=== PATIENT | female | born 1945 | race Caucasian/White ===

== ENCOUNTER 2025-01-30 12:14 | Inpatient (IN) | payer OTHER ==
[~2025-01-30] VITALS: Ht 157.5 cm; Wt 36.7 kg
[2025-01-30 12:54] LABS: PLATELET COUNT (AUTO) 213 K/uL (150-450); RED BLOOD CELL COUNT(AUTO) 2.56 MIL/uL (4.0-5.2); RED CELL DISTRIBUTION WIDTH 22.9 % (11.5-15.0); WHITE BLOOD COUNT (AUTO) 3.5 K/uL (4.3-11.0)
[2025-01-30 13:01] LABS: CALCIUM, SERUM 9.5 mg/dL (8.5-10.1); CREATININE 0.7 mg/dL (0.6-1.3); SODIUM SERUM 136 mmol/L (136-145); UREA NITROGEN, BLOOD 16 mg/dL (7-18)
[2025-01-30 13:14] LABS: ALCOHOL, BLOOD < 3 mg/dL (0-10); ASPARTATE AMINOTRANSFERASE 13 U/L (15-37); TOTAL PROTEIN, SERUM 6.3 g/dL (6.4-8.2)
[2025-01-30] MEDS ORDERED: OLANZAPINE 5 MG TABLET ONE (13:40)
[2025-01-30] MEDS: OLANZAPINE ZYDIS 5 MG TAB.RAPDIS PO ONE (13:45)
[2025-01-30] MEDS ORDERED: ACETAMINOPHEN ES 500 MG TABLET ONE (16:21)
[2025-01-30] MEDS: ACETAMINOPHEN ES 500 MG TABLET PO ONE (16:28)
[2025-01-30 17:35] LABS: APPEARANCE,URINE CLEAR (CLEAR); BLOOD, URINE Negative Ery/uL (NEGATIVE); LEUKOCYTE ESTERASE ,URINE Negative (NEGATIVE); NITRITE, URINE NEGATIVE (NEGATIVE); UGLUCOSE Negative (NEGATIVE)
[2025-01-30 17:43] LABS: AMPHETAMINE, URINE NEGATIVE (NEGATIVE); BARBITURATE, URINE NEGATIVE (NEGATIVE); BENZODIAZEPINE, URINE POSITIVE (NEGATIVE); CANNABINOID, URINE NEGATIVE (NEGATIVE); COCCAINE, URINE NEGATIVE (NEGATIVE); OPIATE, URINE POSITIVE (NEGATIVE)
[2025-01-30] MEDS ORDERED: ONDANSETRON HCL/PF 4 MG/2 ML VIAL IVP PRN (22:30)
[2025-01-30] MEDS ORDERED: MAG HYDROX/AL HYDROX/SIMETH 30 ML UDC PO PRN (22:30)
[2025-01-30] MEDS ORDERED: MAGNESIUM HYDROXIDE 30 ML UDC PO PRN (22:30)
[2025-01-30] MEDS: IV NS 0.9% 1,000 ML IV PRN (23:42)
[2025-01-30] MEDS: ENOXAPARIN SODIUM 40 MG/0.4 ML DISP.SYRIN SQ SCH (23:42)
[2025-01-30] MEDS: ACETAMINOPHEN 325 MG TABLET PO PRN (23:55)
[2025-01-31 00:30] VITALS: BP 113/58; TEMP 98.6; O2SAT 94
[2025-01-31 04:00] VITALS: BP 130/79; O2SAT 100
[2025-01-31] MEDS: PANTOPRAZOLE 40 MG TABLET.DR PO SCH (07:30)
[2025-01-31 07:44] LABS: PLATELET COUNT (AUTO) 191 K/uL (150-450); RED BLOOD CELL COUNT(AUTO) 2.41 MIL/uL (4.0-5.2); RED CELL DISTRIBUTION WIDTH 23.7 % (11.5-15.0); WHITE BLOOD COUNT (AUTO) 2.1 K/uL (4.3-11.0)
[2025-01-31] MEDS ORDERED: ZINC50TA65 PO (08:22)
[2025-01-31] MEDS ORDERED: SERT50TA12 PO (08:22)
[2025-01-31] MEDS ORDERED: CLON0.5T4 PO (08:22)
[2025-01-31] MEDS ORDERED: ASPI-1420 PO (08:22)
[2025-01-31] MEDS ORDERED: NALO4SPR NS (08:22)
[2025-01-31] MEDS ORDERED: HYDR-4076 PO (08:22)
[2025-01-31] MEDS ORDERED: APIX2.5T PO (08:22)
[2025-01-31] MEDS ORDERED: CHOL100043 PO (08:22)
[2025-01-31] MEDS ORDERED: MAGN400O6 PO (08:22)
[2025-01-31] MEDS ORDERED: BISA10SU11 RC (08:22)
[2025-01-31] MEDS ORDERED: CYCL5TAB PO (08:22)
[2025-01-31] MEDS ORDERED: ATOR40TA PO (08:22)
[2025-01-31] MEDS ORDERED: ACET-73 PO (08:22)
[2025-01-31] MEDS ORDERED: DOCU100C36 PO (08:22)
[2025-01-31] MEDS ORDERED: AZEL137S7 BNOSTRILS (08:22)
[2025-01-31] MEDS ORDERED: METO25TA4 PO (08:22)
[2025-01-31] MEDS ORDERED: OXYC5TAB3 PO (08:22)
[2025-01-31] MEDS ORDERED: ALBU6.7H9 IH (08:22)
[2025-01-31] MEDS ORDERED: ONDA-97 PO (08:22)
[2025-01-31] MEDS ORDERED: SENN-261 PO (08:22)
[2025-01-31] MEDS ORDERED: ACET325T53 PO (08:22)
[2025-01-31] MEDS ORDERED: TRIA80CR12 TP (08:22)
[2025-01-31] MEDS ORDERED: CRAN300T PO (08:22)
[2025-01-31] MEDS ORDERED: IPRA42SP BNOSTRILS (08:22)
[2025-01-31] MEDS ORDERED: HYDR-500 PO (08:22)
[2025-01-31] MEDS ORDERED: ALBU2.5V38 IH (08:22)
[2025-01-31] MEDS ORDERED: FAMO20TA8 PO (08:22)
[2025-01-31] MEDS ORDERED: ZINC220C6 PO (08:23)
[2025-01-31 08:33] LABS: SERUM AMMONIA 24.0 umol/L (11-32)
[2025-01-31 08:34] LABS: ASPARTATE AMINOTRANSFERASE 16.0 U/L (15-37); CALCIUM, SERUM 9.1 mg/dL (8.5-10.1); CREATININE 0.6 mg/dL (0.6-1.3); PHOSPHORUS 4.0 mg/dL (2.5-4.9); SODIUM SERUM 142.0 mmol/L (136-145); TOTAL PROTEIN, SERUM 5.9 g/dL (6.4-8.2); UREA NITROGEN, BLOOD 14.0 mg/dL (7-18)
[2025-01-31] MEDS: PANTOPRAZOLE 40 MG VIAL IV SCH (08:45)
[2025-01-31] MEDS: ASPIRIN EC 81 MG TABLET.DR PO SCH (08:59)
[2025-01-31] MEDS: METOPROLOL SUCCINATE 25 MG TAB.SR.24H PO SCH (09:00)
[2025-01-31] MEDS: APIXABAN 2.5 MG TABLET PO SCH (09:00)
[2025-01-31] MEDS: TRIAMCINOLONE ACETONIDE 0.1% CR 15 GM TUBE TP SCH (09:59)
[2025-01-31 12:00] VITALS: BP 109/51; TEMP 97.7; O2SAT 100
[2025-01-31 16:46] VITALS: BP 77/44; TEMP 97; O2SAT 100
[2025-01-31] MEDS: IV NS 0.9% 1,000 ML IV ONE (16:52)
[2025-01-31] MEDS: BACITRACIN ZINC OINT (15 GM) 15 GM TUBE TP SCH (17:00)
[2025-01-31 17:40] VITALS: BP 100/45; O2SAT 94
[2025-01-31 20:00] VITALS: BP 99/45; TEMP 97.9; O2SAT 97
[2025-01-31] MEDS: AMITRIPTYLINE HCL 25 MG TABLET PO SCH (21:45)
[2025-01-31] MEDS: ATORVASTATIN 40 MG TABLET PO SCH (21:45)
[2025-01-31] MEDS: SERTRALINE HCL 50 MG TABLET PO SCH (21:46)
[2025-02-01] VITALS (10 sets, daily range): BP systolic 98–162; BP diastolic 40–59; TEMP 97–98.2; O2SAT 96–98
[2025-02-01 10:55] LABS: PLATELET COUNT (AUTO) 170 K/uL (150-450); RED BLOOD CELL COUNT(AUTO) 2.56 MIL/uL (4.0-5.2); RED CELL DISTRIBUTION WIDTH 20.1 % (11.5-15.0); WHITE BLOOD COUNT (AUTO) 4.1 K/uL (4.3-11.0)
[2025-02-01 12:00] LABS: RHEUMATOID FACTOR SCREEN NEGATIVE (NEGATIVE)
[2025-02-01 12:01] LABS: IRON, SERUM 154.0 ug/dl (50-175)
[2025-02-01 12:04] LABS: CALCIUM, SERUM 8.3 mg/dL (8.5-10.1); CREATININE 0.5 mg/dL (0.6-1.3); PHOSPHORUS 3.2 mg/dL (2.5-4.9); SODIUM SERUM 143.0 mmol/L (136-145); UREA NITROGEN, BLOOD 10.0 mg/dL (7-18)
[2025-02-01] MEDS: OLANZAPINE 10 MG VIAL IM PRN (12:30)
[2025-02-01] MEDS: hydrALAZINE HCL IV 20 MG VIAL IV PRN (17:27)
[2025-02-01 19:50] LABS: HIV-1/2 ANTIBODY NON REACTIVE (NONREACTIVE)
[2025-02-01] MEDS: Magnesium 1GM/D5W 100ML PREMIX 100 ML IV SCH (20:26)
[2025-02-02] VITALS (12 sets, daily range): BP systolic 122–160; BP diastolic 43–74; TEMP 97.7–98.7; O2SAT 95–98
[2025-02-02 04:07] LABS: HBSAG SCREEN Negative (Negative); HEPATITIS A AB, IgM Negative (Negative); HEPATITIS B CORE AB, IgM Negative (Negative)
[2025-02-02 12:07] LABS: CARCINOEMBRYONIC ANTIGEN (CEA) < 0.6 ng/mL (0.0-4.7); FOLIC ACID 5.1 ng/mL (>3.0); IMMUNOGLOBULIN A, SERUM 99 mg/dL (64-422); IMMUNOGLOBULIN M, SERUM 63 mg/dL (26-217)
[2025-02-02] MEDS ORDERED: GADOTERATE MEGLUMINE 5 MMOL/10 ML VIAL IV ONE (14:55)
[2025-02-02] MEDS: ENSURE ENLIVE CHOC 237 ML CAN PO SCH (15:18)
[2025-02-02] MEDS ORDERED: LORAZEPAM 4 MG/ML VIAL IM ONE (18:00)
[2025-02-02] MEDS: LORAZEPAM INJ 2 MG/ML VIAL IM ONE (18:19)
[2025-02-03] VITALS (7 sets, daily range): BP systolic 137–170; BP diastolic 63–72; TEMP 97.5–98.6; O2SAT 97
[2025-02-03 03:07] LABS: HEPATITIS B CORE AB, TOTAL Negative (Negative); HEPATITIS B SURFACE AB (QUAL) Non Reactive (.)
[2025-02-03 06:53] LABS: INR 1.02 (0.91-1.10)
[2025-02-03 06:55] LABS: PLATELET COUNT (AUTO) 180 K/uL (150-450); RED BLOOD CELL COUNT(AUTO) 3.05 MIL/uL (4.0-5.2); RED CELL DISTRIBUTION WIDTH 17.9 % (11.5-15.0); WHITE BLOOD COUNT (AUTO) 6.3 K/uL (4.3-11.0)
[2025-02-03 07:07] LABS: FREE KAPPA LT CHAINS SERUM 15.3 mg/L (3.3-19.4); FREE LAMBDA LT CHAIN SERUM 15.6 mg/L (5.7-26.3); KAPPA/LAMBDA RATIO SERUM 0.98 (0.26-1.65)
[2025-02-03 07:32] LABS: IRON, SERUM 17 ug/dl (50-175)
[2025-02-03] MEDS: CYANOCOBALAMIN 500 MCG TABLET PO SCH (08:18)
[2025-02-03 09:31] LABS: CALCIUM, SERUM 8.6 mg/dL (8.5-10.1); CREATININE 0.5 mg/dL (0.6-1.3); UREA NITROGEN, BLOOD 9.0 mg/dL (7-18)
[2025-02-03 09:35] LABS: SODIUM SERUM 144.0 mmol/L (136-145)
[2025-02-03] MEDS: POTASSIUM CL. PREMIX PERIPHER. 50 ML IV SCH (10:10)
[2025-02-03 12:07] LABS: *ANA ANTI-CENTROMERE B AB <0.2 AI (0.0-0.9); *ANA ANTI-DNA(DS) AB, QN <1 IU/mL (0-9); *ANA ANTI-JO-1 <0.2 AI (0.0-0.9); *ANA ANTICHROMATIN ANTIBODY <0.2 AI (0.0-0.9); *ANA RNP ANTIBODIES <0.2 AI (0.0-0.9); *ANA SJOGREN'S ANTI-SS-A <0.2 AI (0.0-0.9); *ANA SJOGREN'S ANTI-SS-B <0.2 AI (0.0-0.9); *ANAANTI-SCLERODERMA-70 AB <0.2 AI (0.0-0.9); *ANASMITH AB <0.2 AI (0.0-0.9)
[2025-02-04] VITALS: BP 150/68; TEMP 98.1; O2SAT 97
[2025-02-04 03:54] LABS: CALCIUM, SERUM 8.4 mg/dL (8.5-10.1); CREATININE 0.4 mg/dL (0.6-1.3); SODIUM SERUM 143.0 mmol/L (136-145); UREA NITROGEN, BLOOD 10.0 mg/dL (7-18)
[2025-02-04 04:00] VITALS: BP 158/71; TEMP 98; O2SAT 97
[2025-02-04 08:00] VITALS: BP 148/71; TEMP 98.2; O2SAT 97
[2025-02-04 12:00] VITALS: BP 150/90; TEMP 98.2; O2SAT 98
[2025-02-04] MEDS: LORAZEPAM INJ 2 MG/ML VIAL IM PRN (12:28)
[2025-02-04] MEDS: HALOPERIDOL LACTATE INJ 5 MG/ML VIAL IM ONE (12:35)
[2025-02-04] MEDS ORDERED: POTASSIUM CHLORIDE 10 MEQ/50 ML PREMIXED IVPB FOR PERIPHERAL LINE IV ONE ×2 (13:00)
[2025-02-04] MEDS ORDERED: POTASSIUM CHLORIDE 20 MEQ TAB.PRT.SR PO SCH (13:00)
[2025-02-04] MEDS: POTASSIUM CL. PREMIX PERIPHER. 50 ML IV SCH (13:17)
[2025-02-04 16:00] VITALS: BP 138/89; TEMP 98.3; O2SAT 98
[2025-02-04 20:00] VITALS: BP 186/88; TEMP 97.6; O2SAT 97
[2025-02-04] MEDS: QUETIAPINE FUMARATE 25 MG TABLET PO SCH (21:13)
[2025-02-05] VITALS: BP 167/67; TEMP 98; O2SAT 96
[2025-02-05 04:00] VITALS: BP 139/67; TEMP 97.6; O2SAT 97
[2025-02-05 07:05] LABS: PLATELET COUNT (AUTO) 170 K/uL (150-450); RED BLOOD CELL COUNT(AUTO) 2.95 MIL/uL (4.0-5.2); RED CELL DISTRIBUTION WIDTH 18.7 % (11.5-15.0); WHITE BLOOD COUNT (AUTO) 4.2 K/uL (4.3-11.0)
[2025-02-05 08:00] VITALS: BP_SYST 155; BP_SYST 165; BP_DIAS 65; BP_DIAS 68; TEMP 98; O2SAT 97
[2025-02-05 08:12] LABS: CALCIUM, SERUM 9.1 mg/dL (8.5-10.1); CREATININE 0.5 mg/dL (0.6-1.3); SODIUM SERUM 143.0 mmol/L (136-145); UREA NITROGEN, BLOOD 10.0 mg/dL (7-18)
[2025-02-05 09:15] VITALS: BP 144/55
[2025-02-05] MEDS: PANTOPRAZOLE 40 MG TABLET.DR PO SCH (09:19)
[2025-02-05 09:30] VITALS: BP 165/68
[2025-02-05] MEDS ORDERED: Quetiapine Fumarate PO (10:31)
[2025-02-05] MEDS ORDERED: AMIT25TA9 PO (10:31)
[2025-02-05] MEDS ORDERED: PANT40TA49 PO (10:31)
[2025-02-05 12:00] VITALS: BP 124/58; TEMP 98; O2SAT 95
[2025-02-06 14:07] LABS: *SPE A/G RATIO 1.7 (0.7-1.7); *SPE ALBUMIN 2.9 g/dL (2.9-4.4); *SPE ALPHA-1-GLOBULIN 0.2 g/dL (0.0-0.4); *SPE ALPHA-2-GLOBULIN 0.4 g/dL (0.4-1.0); *SPE BETA GLOBULIN 0.6 g/dL (0.7-1.3); *SPE GLOBULIN, TOTAL 1.7 g/dL (2.2-3.9); *SPE M-SPIKE Not Observed g/dL (Not Observed); *SPE PROTEIN TOTAL 4.6 g/dL (6.0-8.5); *SPEGAMMA GLOBULIN 0.5 g/dL (0.4-1.8)
== END 2025-02-05 14:10 | DRG 811 ==
LOC: ER 12:23 → MEDSG1 22:23 → TELE1 01-31 18:02
PROVIDERS: ADMIT Nurse Practitioner Family; ATTEND Internal Medicine
PROC: 30233N1 Transfusion of Nonautologous Red Blood Cells into Peripheral Vein, Percutaneous Approach (ICD-10-PCS; principal; 2025-02-01)
PROC: 0DB68ZX Excision of Stomach, Via Natural or Artificial Opening Endoscopic, Diagnostic (ICD-10-PCS; 2025-02-03)
DX: D64.9 Anemia, unspecified (principal); G93.41 Metabolic encephalopathy; F03.92 Unspecified dementia, unspecified severity, with psychotic disturbance; F03.911 Unspecified dementia, unspecified severity, with agitation; Z68.1 Body mass index [BMI] 19.9 or less, adult; C78.02 Secondary malignant neoplasm of left lung; F29 Unspecified psychosis not due to a substance or known physiological condition; D61.818 Other pancytopenia; E66.9 Obesity, unspecified; E78.5 Hyperlipidemia, unspecified; F32.9 Major depressive disorder, single episode, unspecified; F41.1 Generalized anxiety disorder; I10 Essential (primary) hypertension; I25.10 Atherosclerotic heart disease of native coronary artery without angina pectoris; J45.909 Unspecified asthma, uncomplicated; K29.70 Gastritis, unspecified, without bleeding; I48.91 Unspecified atrial fibrillation; Z79.82 Long term (current) use of aspirin; Z85.07 Personal history of malignant neoplasm of pancreas; Z85.038 Personal history of other malignant neoplasm of large intestine; Z89.611 Acquired absence of right leg above knee; R73.9 Hyperglycemia, unspecified; E80.6 Other disorders of bilirubin metabolism; G54.7 Phantom limb syndrome without pain; L89.156 Pressure-induced deep tissue damage of sacral region; S50.312A Abrasion of left elbow, initial encounter; X58.XXXA Exposure to other specified factors, initial encounter; Y93.9 Activity, unspecified; Y92.129 Unspecified place in nursing home as the place of occurrence of the external cause; F19.10 Other psychoactive substance abuse, uncomplicated; Z85.830 Personal history of malignant neoplasm of bone; Z91.199 Patient's noncompliance with other medical treatment and regimen due to unspecified reason
CPT/HCPCS: 36415; 70450-TC; 70553-TC; 71045-TC; 71250-TC; 80048-TC; 80076-TC; 82140-TC; 82378; 82607-TC; 82728-TC; 82784; 83540-TC; 83615-TC; 83735-TC; 83921; 84100-TC; 84155; 84165; 84443-TC; 85025-TC; 85027-TC; 85610-TC; 85730-TC; 86225; 86235; 86334; 86431-TC; 86704; 86706; 86850-TC; 87040-TC; 87081-TC; 87340; 87806; 88305-TC; 88313-TC; 88342; A4223; A9575; G0378; G0480; J0360; J1630; J1650; J2060; J2470; J2704; J3475; J3480; J3490; J7030; J7050; P9016; Q0177